=== PATIENT | male | born 1995 | race Caucasian/White ===

== ENCOUNTER 2017-07-06 13:06 | Emergency (ER) | payer OTHER ==
[~2017-07-06] VITALS: Ht 162.6 cm; Wt 55.0 kg
[2017-07-06 13:12] VITALS: BP 123/80
== END 2017-07-06 18:25 | disposition left against medical advice (07) ==
LOC: ER 15:28
DX: R07.9 Chest pain, unspecified (principal); Z53.21 Procedure and treatment not carried out due to patient leaving prior to being seen by health care provider